=== PATIENT | female | born 1945 | race Caucasian/White ===

== ENCOUNTER 2019-09-02 23:34 | Emergency (ER) | payer MEDICARE, BC ==
[~2019-09-02] VITALS: Ht 167.6 cm; Wt 72.7 kg
[~2019-09-02 23:34] MED LIST: UNABLE
[2019-09-02 23:38] VITALS: TEMP 97.7
[2019-09-03 00:33] LABS: BASO # 0.1 (0.0-0.2); BASO % 0.6 % (0.0-2.0); EOS % 0.1 % (0-4.0); GRAN # 8.2 (1.4-6.5); GRAN % 75.3 % (42.2-75.2); HEMATOCRIT 43.4 % (37.0-47.0); HEMOGLOBIN 14.2 g/dl (12.5-16.0); LYMPH # 1.7 (1.2-3.4); LYMPH % 15.9 % (20.0-51.0); MEAN CELL VOLUME 96 fl (80.0-100.0); MEAN CORPUSCULAR HEMOGLOBIN 32 pg (27.0-31.0); MEAN CORPUSCULAR HGB CONC 33 g/dl (33.0-37.0); MEAN PLATELET VOLUME 9.6 fl (7.4-10.4); MONO # 0.8 (0.1-0.6); MONO % 7.4 % (1.7-9.3); PLATELET COUNT 268 K/mm3 (130-400); REDCELL DISTRIBUTION WIDTH-CV 14.2 % (11.5-14.5)
[2019-09-03 00:40] LABS: PROTHROMBIN TIME 11.4 SECONDS (9.7-12.8)
[2019-09-03 00:42] LABS: ALANINE AMINOTRANSFERASE 16 U/L (4-34); ALBUMIN 3.8 gm/dL (3.5-5.0); ALCOHOL(ethanol),MEDICAL 265 mg/dL; ALKALINE PHOSPHATASE 40 U/L (50-136); ANION GAP 17 mmol/L (7-16); AST,SGOT 36 U/L (15-37); BILIRUBIN,TOTAL 0.4 mg/dL (0.0-1.0); BLOOD UREA NITROGEN 24 mg/dL (7-17); CALCIUM 8.2 mg/dL (8.4-10.2); CARBON DIOXIDE 15 mmol/L (22-30); CHLORIDE 106 mmol/L (98-107); GLUCOSE 151 mg/dL (74-106); LIPASE 82 U/L (23-300); MAGNESIUM 1.8 mg/dL (1.6-2.3); POTASSIUM 3.6 mmol/L (3.4-5.0); SODIUM 137 mmol/L (137-145); TOTAL PROTEIN 6.7 gm/dL (6.4-8.2)
[2019-09-03 00:54] LABS: TROPONIN-I < 0.012 ng/mL (0.000-0.035)
[2019-09-03 01:02] LABS: ACETAMINOPHEN < 10 ug/mL (10-30); SALICYLATE < 1.0 mg/dL
[2019-09-03 07:06] LABS: COLLECTION METHOD CLEAN CATCH
[2019-09-03 07:15] LABS: PH 5 (5-8); SQUAMOUS EPITHELIAL 0-2 /hpf; URINE APPEARANCE Hazy; URINE BACTERIA Many /hpf; URINE BILIRUBIN Negative (NEGATIVE); URINE BLOOD Negative (NEGATIVE); URINE COLOR Yellow; URINE GLUCOSE Negative (NEGATIVE); URINE KETONE 1+ (NEGATIVE); URINE LEUKOCYTE ESTERASE Trace (NEGATIVE); URINE NITRATE Positive (NEGATIVE); URINE PROTEIN(semi-quant) Negative (NEGATIVE); URINE RBC 0-2 /hpf; URINE UROBILINOGEN Negative (NEGATIVE)
[2019-09-03 07:20] LABS: TRICYCLIC ANTIDEPRESS URINE NEGATIVE
[2019-09-03] MEDS ORDERED: OMNICEF 300MG300 MG PO (07:38)
--- NOTE | 2019-09-03 13:06 | NUR ---
[employer] responded to social service consult for patient in the ED. Per Nazia SILVA patient has been screened by [facility] and is cleared for discharge. Nazia reports she spoke to patient's about safety plan as patient reports they have a firearm at home in the garage. Nazia advised that she spoke with patient's , Wiley (ph#[phone]) who said he would be moving and locking up the firearm. 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 Consult was put in as patient's alcohol abuse. MAHNAZ met with patient who advised she lives in [place] with her , Wiley. Patient's primary care physician in Dr. Ruelas in [place]. Patient states normally she only drinks about a couple times a week. Patient states she cannot recall how much she drinks per day or how much she drank prior to arriving at the ED. Patient states she used to go to [facility] for outpatient services but states the provider she saw never called or followed up with her. Patient would like to get connected again with AA. MAHNAZ provided list of outpatient resources and local AA meetings. MAHNAZ also provided [facility] Resource Guide. Patient reports that this weekend her was out of town and things don't go well when she is home for the weekend by herself. Patient states her does not go out of town often. SW discussed plan for if patient's does sometime go out of town again. Patient states her step son, Antwon and Daughter in Law, Lorene live next door and she can call them for support if needed. Patient states normally her monitors how much she drinks as he does not drink himself. Patient is open to having an appointment made with Ebony Parham, Drug and Alcohol Therapist with [facility]. MAHNAZ contacted Kathleen, blood coordinator and put her on speaker phone with patient in the room. Appointment was made for , 09/05/19 at 1100 at the [place] location at [address] Kathleen advised patient that she would send documents that needed to be completed online prior to appointment. Patient verbalized understanding and stated she would be able to complete the paperwork. MAHNAZ wrote down appointment date, time and location for patient and also gave appointment to Nazia SILVA to include in discharge paperwork. Patient denies any further questions or concerns at this time. SW collaborated the above information to Nazia SILVA.
[2019-09-03 13:15] VITALS: BP 136/81; PULSE 72
== END 2019-09-03 13:05 | disposition home or self-care (01) ==
LOC: COL.ER 23:34
PROVIDERS: Physician Assistant
DX: F10.129 Alcohol abuse with intoxication, unspecified (principal); F32.9 Major depressive disorder, single episode, unspecified; R45.851 Suicidal ideations; F41.9 Anxiety disorder, unspecified
CPT/HCPCS: C9113; J0696; J2405; J3411; J7030